=== PATIENT | female | born 1940 | race Caucasian/White ===

== ENCOUNTER 2023-07-05 12:31 | Inpatient (IN) | payer OTHER, MEDICAID ==
[~2023-07-05] VITALS: Ht 162.6 cm; Wt 81.2 kg
[2023-07-05 12:56] VITALS: O2SAT 95
[2023-07-05] MEDS: SODIUM CHLORIDE 0.9% 1,000 ML IV ONE (13:23)
[2023-07-05 13:52] LABS: Basophils # (auto) 0.1 10 ^3/uL (0-0.2); Basophils % (auto) 0.3 % (0.0-2.0); Eosinophils # (auto) 0.6 10 ^3/uL (0-0.8); Eosinophils % (auto) 3.5 % (0.0-7.0); Hematocrit 47.8 % (36.0-46.0); Hemoglobin 15.1 g/dL (12.2-16.2); Lymphocytes # (auto) 2.1 10 ^3/uL (0.4-5.4); Lymphocytes % (auto) 12.6 % (10.0-50.0); Mean Corpuscular Hemoglobin 29.6 pg (28.0-32.0); Mean Corpuscular Hgb Conc. 31.7 g/dL (32.0-36.0); Mean Corpuscular Volume 93.6 fL (80.0-100.0); Monocytes # (auto) 0.9 10 ^3/uL (0-1.3); Monocytes % (auto) 5.1 % (0.0-12.0); Neutrophils # (auto) 13.3 10 ^3/uL (1.6-8.6); Neutrophils % (auto) 78.5 % (37.0-80.0); Red Blood Cells 5.11 10^6/uL (4.0-5.20); White Blood Cell 16.9 10^3/uL (4.4-10.8)
[2023-07-05 13:57] LABS: Chloride 107 mmol/L (98-107); Sodium 137 mmol/L (136-145)
[2023-07-05 13:58] LABS: Anion Gap 3 (5-15); Carbon Dioxide 27 mmol/L (20-30)
[2023-07-05 13:59] LABS: Calcium 9.4 mg/dL (8.5-10.1)
[2023-07-05 14:03] LABS: Blood Urea Nitrogen 15 mg/dL (9-23); Glucose 124 mg/dL (74-106)
[2023-07-05 18:18] LABS: Urine Bacteria None Seen /hpf (None Seen)
[2023-07-05] MEDS ORDERED: BISO5TAB44 PO (18:23)
[2023-07-05] MEDS ORDERED: HYDR1TAB97 PO (18:23)
[2023-07-05] MEDS ORDERED: ACET300T57 PO (18:23)
[2023-07-05] MEDS ORDERED: SERT25TA28 PO (18:23)
[2023-07-05] MEDS ORDERED: CLOP75TA70 PO (18:23)
[2023-07-05] MEDS ORDERED: VALS1TAB57 PO (18:23)
[2023-07-05] MEDS ORDERED: GAB100C PO (18:23)
[2023-07-05] MEDS ORDERED: ATOR-47 PO (18:23)
[2023-07-05] MEDS ORDERED: ONDANSETRON HCL 4 MG/2 ML VIAL IV PRN (18:30)
[2023-07-05] MEDS ORDERED: HYDROcodone-ACET 5/325MG TAB PO PRN (18:30)
[2023-07-05] MEDS ORDERED: ACETAMINOPHEN 325 MG TAB PO PRN (18:30)
[2023-07-05 18:54] LABS: Urine Blood Negative /uL (Negative); Urine Clarity Clear (Clear); Urine Color Light-Yellow (Yellow); Urine Mucus FEW (None Seen); Urine Protein, UAD Negative (Negative); Urine Specific Gravity 1.016 (1.001-1.035); Urine Urobilinogen Normal (Negative); Urine WBC 4 /hpf (0 - 5)
[2023-07-05] MEDS: SODIUM CHLORIDE 0.9% 1,000 ML IV SCH (18:58)
[2023-07-05] MEDS: cefTRIAXone 1GM/50ML D5W 50 ML IV ONE (18:59)
[2023-07-05] MEDS: PANTOPRAZOLE 40 MG/10 ML VIAL INJ IV ONE (18:59)
[2023-07-05 19:30] VITALS: PULSE 85; RESP 32; O2SAT 97
[2023-07-05] MEDS: metroNIDAZOLE 500MG/100ML 100 ML IV ONE (19:52)
[2023-07-05] MEDS: HYDROcodone-ACET 5/325MG TAB PO PRN (20:58)
[2023-07-05 22:08] VITALS: BP 133/30; PULSE 67; RESP 20; TEMP 98; O2SAT 95
[2023-07-05] MEDS: GABAPENTIN 100 MG CAP PO SCH (22:11)
[2023-07-05] MEDS ORDERED: SERT-206 PO (22:15)
[2023-07-05 22:18] VITALS: BP 133/30; PULSE 67; RESP 20; TEMP 98; O2SAT 95
[2023-07-06 01:00] VITALS: BP 127/38; PULSE 62; RESP 18; TEMP 98; O2SAT 94
[2023-07-06] MEDS: metroNIDAZOLE 500MG/100ML 100 ML IV SCH (04:11)
[2023-07-06 05:00] VITALS: BP 129/34; PULSE 59; RESP 20; TEMP 98; O2SAT 95
[2023-07-06 06:32] LABS: Basophils # (auto) 0.1 10 ^3/uL (0-0.2); Basophils % (auto) 0.4 % (0.0-2.0); Eosinophils # (auto) 0.7 10 ^3/uL (0-0.8); Eosinophils % (auto) 4.4 % (0.0-7.0); Hematocrit 43.4 % (36.0-46.0); Hemoglobin 13.9 g/dL (12.2-16.2); Lymphocytes # (auto) 1.8 10 ^3/uL (0.4-5.4); Lymphocytes % (auto) 12.3 % (10.0-50.0); Mean Corpuscular Hemoglobin 29.9 pg (28.0-32.0); Mean Corpuscular Hgb Conc. 32.1 g/dL (32.0-36.0); Monocytes # (auto) 0.9 10 ^3/uL (0-1.3); Monocytes % (auto) 6.1 % (0.0-12.0); Neutrophils # (auto) 11.4 10 ^3/uL (1.6-8.6); Neutrophils % (auto) 76.8 % (37.0-80.0); Nucleated Red Blood Cells % 0.1 %; Red Blood Cells 4.66 10^6/uL (4.0-5.20); Red Cell Distribution Width 14.7 % (11.8-14.3); White Blood Cell 14.8 10^3/uL (4.4-10.8)
[2023-07-06 06:54] LABS: Alanine Aminotransferase 13 U/L (7-40); Albumin 3.5 g/dL (3.2-4.8); Alkaline Phosphatase 53 U/L (46-116); Anion Gap 5 (5-15); Aspartate Aminotransferase 12 U/L (13-40); BUN/Creatinine Ratio 14.7 (10.0-20.0); Blood Urea Nitrogen 11 mg/dL (9-23); Calcium 8.8 mg/dL (8.5-10.1); Carbon Dioxide 23 mmol/L (20-30); Chloride 110 mmol/L (98-107); Glucose 107 mg/dL (74-106); Potassium 4.3 mmol/L (3.5-5.1); Sodium 138 mmol/L (136-145)
[2023-07-06 06:55] LABS: Bilirubin, Total 0.6 mg/dL (0.2-1.0); Total Protein 5.9 g/dL (5.7-8.2)
[2023-07-06 08:34] VITALS: BP 113/52; PULSE 65; RESP 18; TEMP 98.2; O2SAT 94
[2023-07-06] MEDS: PANTOPRAZOLE 40 MG/10 ML VIAL INJ IV SCH (09:21)
[2023-07-06] MEDS: cefTRIAXone 1GM/50ML D5W 50 ML IV SCH (09:21)
[2023-07-06] MEDS: ENOXAPARIN SOD 40 MG/0.4 ML SYRINGE SC SCH (09:22)
[2023-07-06] MEDS: ATORVASTATIN 20 MG TAB PO SCH (09:25)
[2023-07-06] MEDS: SERTRALINE HCL 50 MG TAB PO SCH (09:25)
[2023-07-06] MEDS: CLOPIDOGREL BISULFATE 75 MG TAB PO SCH (09:25)
[2023-07-06] MEDS: ATENOLOL 25 MG TAB PO SCH (09:28)
[2023-07-06] MEDS: VALSARTAN 80 MG TAB PO SCH (09:31)
[2023-07-06] MEDS: CYANOCOBALAMIN (B-12) 1000 MCG/1 ML VIAL SUBCUT ONE (11:48)
[2023-07-06 13:00] VITALS: BP 137/62; PULSE 66; RESP 18; TEMP 98.4; O2SAT 96
[2023-07-06] MEDS: metroNIDAZOLE 500 MG TAB PO SCH (13:15)
[2023-07-06 17:00] VITALS: BP 118/54; PULSE 58; RESP 18; TEMP 98.2; O2SAT 96
[2023-07-06] MEDS ORDERED: LOPERAMIDE HCL 2 MG CAP/TAB PO PRN (18:45)
[2023-07-06 21:00] VITALS: BP 104/41; PULSE 64; RESP 16; TEMP 98.4; O2SAT 96
[2023-07-07] VITALS (7 sets, daily range): BP systolic 103–140; BP diastolic 42–60; PULSE 53–68; RESP 16–20; TEMP 98.2–99.1; O2SAT 20–96
[2023-07-07] MEDS: LOPERAMIDE HCL 2 MG CAP/TAB PO ONE (00:22)
[2023-07-07 07:50] LABS: Chloride 106 mmol/L (98-107); Potassium 4.4 mmol/L (3.5-5.1); Sodium 134 mmol/L (136-145)
[2023-07-07 07:51] LABS: Anion Gap 3 (5-15); Calcium 9.2 mg/dL (8.5-10.1); Carbon Dioxide 25 mmol/L (20-30)
[2023-07-07 07:54] LABS: Basophils # (auto) 0.1 10 ^3/uL (0-0.2); Basophils % (auto) 0.6 % (0.0-2.0); Eosinophils # (auto) 0.4 10 ^3/uL (0-0.8); Eosinophils % (auto) 4.1 % (0.0-7.0); Hematocrit 42.3 % (36.0-46.0); Hemoglobin 13.8 g/dL (12.2-16.2); Lymphocytes # (auto) 1.8 10 ^3/uL (0.4-5.4); Lymphocytes % (auto) 16.9 % (10.0-50.0); Mean Corpuscular Hemoglobin 29.8 pg (28.0-32.0); Mean Corpuscular Hgb Conc. 32.7 g/dL (32.0-36.0); Mean Corpuscular Volume 91.2 fL (80.0-100.0); Monocytes # (auto) 0.6 10 ^3/uL (0-1.3); Monocytes % (auto) 5.9 % (0.0-12.0); Neutrophils # (auto) 7.7 10 ^3/uL (1.6-8.6); Neutrophils % (auto) 72.5 % (37.0-80.0); Red Blood Cells 4.64 10^6/uL (4.0-5.20); Red Cell Distribution Width 14.3 % (11.8-14.3); White Blood Cell 10.6 10^3/uL (4.4-10.8)
[2023-07-07 07:56] LABS: BUN/Creatinine Ratio 10.8 (10.0-20.0); Blood Urea Nitrogen 10 mg/dL (9-23); Glucose 123 mg/dL (74-106)
[2023-07-07] MEDS: CYANOCOBALAMIN (B-12) 1000 MCG/1 ML VIAL SUBCUT SCH (09:56)
[2023-07-07] MEDS: ATENOLOL 25 MG TAB PO SCH (10:00)
[2023-07-07] MEDS: FLORASTOR (S. BOULARDII) 250 MG CAP PO SCH (10:01)
[2023-07-07] MEDS: ACETAMINOPHEN/CODEINE#3 (300/30mg) TAB PO PRN (22:34)
[2023-07-08 01:00] VITALS: BP 127/57; PULSE 64; RESP 20; TEMP 98.6; O2SAT 98
[2023-07-08 05:00] VITALS: BP 117/56; PULSE 64; RESP 16; TEMP 98.5; O2SAT 94
[2023-07-08] MEDS: PANTOPRAZOLE 40 MG TAB PO SCH (05:56)
[2023-07-08 09:34] VITALS: BP 156/64; PULSE 69; RESP 18; TEMP 98.5; O2SAT 95
[2023-07-08] MEDS ORDERED: LEVO500T91 PO (10:28)
[2023-07-08] MEDS ORDERED: MET500T PO (10:28)
[2023-07-08] MEDS ORDERED: PANT40TA2 PO (10:29)
[2023-07-08] MEDS ORDERED: CYAN500T25 PO (10:29)
[2023-07-08 12:55] VITALS: BP 126/59; PULSE 62; RESP 18; TEMP 98.3; O2SAT 92
[2023-07-08 15:43] VITALS: BP 126/59; PULSE 62; RESP 18; TEMP 98.3; O2SAT 92
[2023-07-08 17:00] VITALS: BP 126/51; PULSE 60; RESP 18; TEMP 97.8; O2SAT 95
== END 2023-07-08 17:31 | disposition home or self-care (01) | DRG 872 ==
LOC: EDBD 12:31 → ER 12:31 → OVERFLOW 18:22 → WEST WING 21:58
PROVIDERS: ADMIT Nurse Practitioner Family; ATTEND Internal Medicine
DX: A41.9 Sepsis, unspecified organism (principal); N39.0 Urinary tract infection, site not specified; J96.10 Chronic respiratory failure, unspecified whether with hypoxia or hypercapnia; A04.9 Bacterial intestinal infection, unspecified; E78.5 Hyperlipidemia, unspecified; E03.9 Hypothyroidism, unspecified; I10 Essential (primary) hypertension; J44.9 Chronic obstructive pulmonary disease, unspecified; E66.9 Obesity, unspecified; E86.0 Dehydration; Z66 Do not resuscitate; Z85.118 Personal history of other malignant neoplasm of bronchus and lung; Z85.038 Personal history of other malignant neoplasm of large intestine; I95.9 Hypotension, unspecified; Z68.30 Body mass index [BMI] 30.0-30.9, adult; Z88.0 Allergy status to penicillin; Z88.6 Allergy status to analgesic agent; Z90.710 Acquired absence of both cervix and uterus; Z90.49 Acquired absence of other specified parts of digestive tract
CPT/HCPCS: 36415; 71045; 74176; 80048; 80053; 81001; 82378; 82607; 83605; 83690; 84443; 85025; 87040; 87045; 87077; 87186; 87493; 93005; 97162; 99291; C9113; G0378; J3490

== ENCOUNTER 2024-01-18 22:25 | Emergency (ER) | payer OTHER, MEDICAID ==
[~2024-01-18] VITALS: Ht 162.6 cm; Wt 59.0 kg
[~2024-01-18 22:25] MED LIST: ATOR-47 PO; BISO5TAB44 PO; CLOP75TA70 PO; CYAN500T25 PO; HYDR1TAB97 PO; LEVO500T91 PO; MET500T PO; PANT40TA2 PO; SERT-206 PO; SERT25TA28 PO
--- NOTE | 2024-01-18 22:43 | ED.PDOC ---
SOB-HPI HPI Comments 83-year-old female presents with a chief complaint of SOB x 12 hours with associated chest pain and cough. Patient states that her chest pain is localized to her left chest wall, describes as pressure, and is non-radiating. Patient mentions that she has been feeling increasingly SOB over the past x 12 hours. Patient relays that she has a persistent cough that is productive with green phlegm. Patient was given a breathing treatment by EMS and placed on 2L of Oxygen. No other symptoms or modifying factors present at this time. Chief Complaint: Chest Pain Time Seen by MD: 22:35 Reviewed notes: Medications, Allergies Information Source: Patient, Emergency Med Personnel Mode of Arrival: EMS Severity: Moderate Timing: Hours Duration: Since onset Context: At Rest PE Risk Factors: None Prehospital treatment: Breathing Tx, Oxygen Associated Signs and Symptoms: Cough Quality: Pressure Radiation: No Radiation Location: Chest (L) If cough with SOB: Productive Vital Signs Vital Signs Date Time Temp Pulse Resp B/P (MAP) Pulse Ox O2 Delivery O2 Flow Rate FiO2 01/19/24 15:19 98.3 66 16 127/48 (74) 95 98.3 01/19/24 07:50 Nasal Cannula* 2 28 Physical Exam General: Awake, alert and oriented. No acute distress. Skin: Skin in warm, dry and intact. Appropriate color for ethnicity. Nailbeds pi nk with no cyanosis. HEENT: The head is normocephalic and atraumatic. Conjunctivae are clear without exudates or hemorrhage. Sclera is non-icteric. EOM are intact. No signs of nystagmus. Eyelids are normal in appearance without swelling or lesions. Oral m [place] is pink and moist Neck: The neck is supple with normal range of motion. No JVD. Cardiac: Heart rate and rhythm are normal. No murmurs, gallops, or rubs are auscultated. Respiratory: Breath sounds diminished bilaterally Abdominal: Abdomen is soft, non-tender without distention. Bowel sounds are present and normoactive in all four quadrants. Extremities: Upper and lower extremities are atraumatic in appearance without deformity or edema. Neurological: The patient is awake, alert and oriented to person, place, and time with normal speech. Speech is clear. There is no facial asymmetry. Psychiatric: Appropriate mood and affect. Good judgement and insight. No visual or auditory hallucinations. Review of Systems: As stated in HPI Past Medical History PAST MEDICAL HISTORY: Cancer, High Lipids, VA, Thyroid Surgical History: Appendectomy, Cholecystectomy, Hysterectomy PROGRAM MANAGER History: No Pertinent PROGRAM MANAGER History Family History Family History: No family hx of Cancer, No family hx of DM, No family hx of H e[place] Social History Smoker: Non-Smoker Alcohol: Denies ETOH Use Drugs: Denies Drug Use Lives In: Home EKG EKG : Pulse Rate (adult): 65 [place]: Normal Cardiac Rhythm: NSR Block: None Hypertrophy: None ST: Normal Was a procedure done? Was a procedure done?: No Differential Dx Differential Diagnosis: Other Comments Differential diagnoses considered include acute ischemic coronary syndrome, aortic dissection, cardiac tamponade, mediastinitis, pulmonary embolus, pneumothorax, tension pneumothorax, esophageal rupture, coronary artery vasos pasm, myocarditis, pericarditis, pneumonia, pulmonary edema, esophageal tear, pancreatitis, aortic stenosis, dilated cardiomyopathy, hypertrophic cardiomyopathy, mitral valve prolapse, malignancy, pleuritis, pneumomediastinum, primary pulmonary hypertension, cholecystitis, esophageal spasm, esophagus, gastritis, GERD, peptic ulcer disease, costochondritis, fibromyalgia, rib fracture, herpes zoster, radicular syndromes, thoracic outlet syndrome, somatization. X-Ray, Labs, Meds, VS Vital Signs Date Time Temp Pulse Resp B/P (MAP) Pulse Ox O2 Delivery O2 Flow Rate FiO2 01/19/24 15:19 98.3 66 16 127/48 (74) 95 98.3 01/19/24 14:36 98.3 67 18 146/58 (87) 95 98.3 01/19/24 12:00 68 01/19/24 11:21 98.3 63 17 141/42 (75) 96 98.3 01/19/24 08:00 63 01/19/24 07:50 98.8 64 17 139/69 (92) 98 98.8 01/19/24 07:50 64 17 98 Nasal Cannula* 2 28 01/19/24 07:00 69 13 155/52 (86) 97 01/19/24 06:25 171/60 01/19/24 06:00 73 24 171/60 (97) 97 01/19/24 05:24 98.4 72 16 166/62 (96) 96 98.4 01/19/24 05:15 72 16 96 Nasal Cannula* 2 28 01/19/24 01:25 94 Nasal Cannula* 2 28 01/19/24 01:25 18 94 Nasal Cannula* 2 28 01/19/24 01:15 65 17 150/55 01/19/24 00:39 66 12 153/66 01/19/24 00:17 98.7 66 17 153/66 (95) 96 98.7 01/19/24 00:17 66 01/18/24 23:30 62 01/18/24 22:43 65 01/18/24 22:32 99.1 87 20 155/98 (117) 93 01/18/24 22:32 65 Lab Test 01/19/24 05:15 01/19/24 01:55 01/19/24 01:00 01/19/24 00:14 Range/Units Influenza Type A Antigen Negative Negative Influenza Type B Antigen Negative Negative Respiratory Syncytial Virus Antigen Negative Negative SARS-CoV-2 Antigen (Rapid) Negative NEGATIVE Troponin I High Sensitivity 11 </=34 ng/L Urine Color Colorless Yellow Urine Clarity Turbid H Clear Urine pH 5.5 5.0-9.0 Urine Specific [place] 1.012 1.001-1.035 Urine Protein Negative Negative Urine Ketones Negative Negative Urine Blood Trace H Negative /uL Urine Nitrite 2+ H Negative Urine Bilirubin Negative Negative Urine Urobilinogen Normal Negative mg/dL Urine Leukocyte Esterase 2+ Negative /uL Urine RBC 4 0 - 4 /hpf Urine WBC 27 0 - 5 /hpf Urine Squamous Epithelial Cells Few <5 /hpf Urine Bacteria Few H None Seen /hpf Urine Mucus Few None Seen Urine Glucose Normal Normal mg/dL Blood Gas Specimen Type Arterial Blood Gas Sample Site Right radial Blood Gas Patient Temperature 37.0 Arterial Blood Date Drawn [id number] Arterial Blood pH 7.405 7.350-7.450 Arterial Blood Partial Pressure CO2 52.9 H 32.0-45.0 mmHg Arterial Blood Partial Pressure O2 72.8 L 83.0-108.0 mmHg Arterial Blood HCO3 32.4 H 21.0-28.0 mmol/L Arterial Blood Oxygen Saturation 95.3 94.0-98.0 % Arterial Blood Base Excess 6.2 H -2.0-3.0 mmol/L Arterial Blood Oxyhemoglobin 94.0 94.0-98.0 % Arterial Blood Carboxyhemoglobin 1.0 0.5-1.5 % Arterial Blood Methemoglobin 0.4 0.0-1.5 % Igor Test Modified Blood Gas Total Hemoglobin 14.50 12.0-16.0 g/dL Blood Gas Liter Flow 2.00 Blood Gas Modality Nasal cannula FiO2 % 28.0 Test 01/18/24 23:50 01/18/24 22:57 Range/Units Troponin I High Sensitivity 9 10 </=34 ng/L White Blood Count 9.7 4.4-10.8 10^3/uL Red Blood Count 4.66 4.0-5.20 10^6/uL Hemoglobin 13.7 12.2-16.2 g/dL Hematocrit 42.1 36.0-46.0 % Mean Corpuscular Volume 90.5 80.0-100.0 fL Mean Corpuscular Hemoglobin 29.3 28.0-32.0 pg Mean Corpuscular Hemoglobin Concent 32.4 32.0-36.0 g/dL Red Cell Distribution Width 14.1 11.8-14.3 % Platelet Count 207 140-450 10^3/uL Mean Platelet Volume 8.7 6.9-10.8 fL Neutrophils (%) (Auto) 80.1 H 37.0-80.0 % Lymphocytes (%) (Auto) 11.7 10.0-50.0 % Monocytes (%) (Auto) 4.4 0.0-12.0 % Eosinophils (%) (Auto) 3.5 0.0-7.0 % Basophils (%) (Auto) 0.3 0.0-2.0 % Neutrophils # (Auto) 7.8 1.6-8.6 10 ^3/uL Lymphocytes # (Auto) 1.1 0.4-5.4 10 ^3/uL Monocytes # (Auto) 0.4 0-1.3 10 ^3/uL Eosinophils # (Auto) 0.3 0-0.8 10 ^3/uL Basophils # (Auto) 0 0-0.2 10 ^3/uL Nucleated Red Blood Cells 0.0 % Prothrombin Time 12.1 H 9.3-11.8 sec Prothrombin Time INR 1.15 0.9-1.15 Activated Partial Thromboplast Time 27.5 24.5-34.5 SEC D-Dimer, Quantitative 0.37 0.0-0.49 mg/L FEU Sodium Level 143 136-145 mmol/L Potassium Level 3.6 3.5-5.1 mmol/L Chloride Level 103 98-107 mmol/L Carbon Dioxide Level 34 H 20-31 mmol/L Anion Gap 6 5-15 Blood Urea Nitrogen 10 9-23 mg/dL Creatinine 0.79 0.550-1.02 mg/dL Glomerular Filtration Rate Calc 75 >90 mL/min BUN/Creatinine Ratio 12.7 10.0-20.0 Serum Glucose 174 H 74-106 mg/dL Calcium Level 9.6 8.7-10.4 mg/dL Magnesium Level 1.5 L 1.6-2.6 mg/dL Total Bilirubin 0.8 0.2-1.0 mg/dL Aspartate Amino Transferase (AST) 33 13-40 U/L Alanine Aminotransferase (ALT) 47 H 7-40 U/L Alkaline Phosphatase 66 46-116 U/L B-Type Natriuretic Peptide 386.23 0-100 pg/mL Total Protein 6.5 5.7-8.2 g/dL Albumin 3.8 3.2-4.8 g/dL Microbiology Date/Time Source Procedure Growth Status 01/19/24 01:00 Voided Urine Urine Culture - Final Complete Time of 1ST Reevaluation: 23:05 Reevaluation 1ST: Unchanged Patient Education/Counseling: Diagnosis, Treatment, Prognosis Family Education/Counseling: No Family Present Departure 1 Departure Time of Disposition: 06:11 Impression: Primary Impression: Shortness of breath Disposition: ADMITTED INPATIENT Condition: Stable Comments 83-year-old female with allergy to penicillin, 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 She presented to the emergency department with shortness of breath. Troponins negative. No ST elevation on EKG. D-dimer was also negative. She continues to report dyspnea above her baseline especially worse with ambulation. Plan to admit/transfer patient for suspected CHF exacerbation versus pneumonia. Labs in the emergency department. Patient is stable. Her chest x-ray showed new findings compared to previous chest x-ray June/2023. 1. Mild cardiomegaly with central pulmonary venous congestion in both lungs. 2. Patchy consolidations in both lower lungs with bilateral pleural effusions. [place] authorization code [id number] Critical Care Note Critical Care Time?: No Stability Stability form required: No Heart Score Heart Score: Heart Score Response (Comments) Value History N/A 0 EKG N/A 0 Age N/A 0 Risk Factors N/A 0 Troponin N/A 0 Total 0 I personally scribed for ALISTAIR SALEH MD ([email or web address]) on 01/18/24 at 22:43. Electronically submitted by Adis Nelson ([email or web address]). ALISTAIR SALEH MD Jan 18, 2024 22:43
[2024-01-18] MEDS: ASPirin 81 mg TAB PO ONE (23:00)
--- NOTE | 2024-01-18 23:11 | ECG ---
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
[2024-01-18 23:19] LABS: Basophils # (auto) 0 10 ^3/uL (0-0.2); Basophils % (auto) 0.3 % (0.0-2.0); Eosinophils # (auto) 0.3 10 ^3/uL (0-0.8); Eosinophils % (auto) 3.5 % (0.0-7.0); Hematocrit 42.1 % (36.0-46.0); Hemoglobin 13.7 g/dL (12.2-16.2); Lymphocytes # (auto) 1.1 10 ^3/uL (0.4-5.4); Lymphocytes % (auto) 11.7 % (10.0-50.0); Mean Corpuscular Hemoglobin 29.3 pg (28.0-32.0); Mean Corpuscular Hgb Conc. 32.4 g/dL (32.0-36.0); Mean Corpuscular Volume 90.5 fL (80.0-100.0); Monocytes # (auto) 0.4 10 ^3/uL (0-1.3); Monocytes % (auto) 4.4 % (0.0-12.0); Neutrophils # (auto) 7.8 10 ^3/uL (1.6-8.6); Neutrophils % (auto) 80.1 % (37.0-80.0); Platelet Count (auto) 207 10^3/uL (140-450); Red Blood Cells 4.66 10^6/uL (4.0-5.20); Red Cell Distribution Width 14.1 % (11.8-14.3); White Blood Cell 9.7 10^3/uL (4.4-10.8)
[2024-01-18 23:32] LABS: INR 1.15 (0.9-1.15); Partial Thromboplastin Time 27.5 SEC (24.5-34.5); Prothrombin Time 12.1 sec (9.3-11.8)
[2024-01-18 23:36] LABS: Albumin 3.8 g/dL (3.2-4.8); Alkaline Phosphatase 66 U/L (46-116); Anion Gap 6 (5-15); Aspartate Aminotransferase 33 U/L (13-40); BUN/Creatinine Ratio 12.7 (10.0-20.0); Bilirubin, Total 0.8 mg/dL (0.2-1.0); Blood Urea Nitrogen 10 mg/dL (9-23); Calcium 9.6 mg/dL (8.7-10.4); Chloride 103 mmol/L (98-107); Potassium 3.6 mmol/L (3.5-5.1); Sodium 143 mmol/L (136-145); Total Protein 6.5 g/dL (5.7-8.2)
[2024-01-18 23:38] LABS: Alanine Aminotransferase 47 U/L (7-40); Carbon Dioxide 34 mmol/L (20-31); Glucose 174 mg/dL (74-106); Magnesium 1.5 mg/dL (1.6-2.6)
[2024-01-19 00:17] VITALS: PULSE 66
[2024-01-19 00:20] LABS: Base Excess 6.2 mmol/L (-2.0-3.0)
[2024-01-19] MEDS: MORPHINE SULFATE INJ 2 MG/ml SYRG IV ONE (00:39)
[2024-01-19] MEDS: ALBUTEROL SULF 2.5 MG/0.5ML(0.5%) NEB SOLN NEB ONE (01:25)
[2024-01-19 01:51] LABS: Urine Bacteria FEW /hpf (None Seen); Urine Blood TRACE /uL (Negative); Urine Clarity Turbid (Clear); Urine Color Colorless (Yellow); Urine Mucus FEW (None Seen); Urine Protein, UAD Negative (Negative); Urine Specific Gravity 1.012 (1.001-1.035); Urine Urobilinogen Normal (Negative); Urine WBC 27 /hpf (0 - 5); Urine pH 5.5 (5.0-9.0)
--- NOTE | 2024-01-19 03:42 | DVH ---
Examination: CXRP Clinical Indication: Chest pain. Comparison: None. Technique: Frontal radiograph of the chest was obtained. Findings: Mild cardiomegaly with central pulmonary venous congestion in both lungs. Inhomogeneous radiopacities in both lower lungs, suggestive of patchy consolidations. Blunting of the bilateral costophrenic angles, suggestive of bilateral pleural effusions. There is no pneumothorax. Aortic knob calcification noted. No acute osseous abnormality is seen. Impression: 1. Mild cardiomegaly with central pulmonary venous congestion in both lungs. 2. Patchy consolidations in both lower lungs with bilateral pleural effusions. Advised further evaluation with CT chest without contrast. Electronically Signed 01/19/2024 03:42 Jaelyn Haley
[2024-01-19] MEDS: NITROFURANTOIN 100 mg CAP PO ONE (03:51)
[2024-01-19] MEDS ORDERED: AZITHROMYCIN 500MG/ 250ML 250 ML IV ONE (04:00)
[2024-01-19 05:15] VITALS: PULSE 72; RESP 16; O2SAT 96
--- NOTE | 2024-01-19 05:21 | DVH ---
Procedure: CT CHEST WITHOUT CONTRAST Reason for study/Clinical History: Abnormal Chest Xray Comparison Study: Chest radiograph performed on earlier same date Exam Date: 01/19/2024 04:26 AM TECHNIQUE: Multidetector CT of the chest was performed from the lung apices to the upper abdomen with out the use of intravenous contract. Axial, coronal and sagittal multiplanar reformats were performed . Radiation Dose Information: CT Dose: CTDI volume is 16.82 mGy. Dose-length product is 601.2 mGy*cm The dose indicators for CT are the volume Computed Tomography (CT) Dose Index (CTDIvol) and the Dose Length Product (DLP), and are measured in units of mGy and mGy-cm, respectively. These indicators are not patient dose, but values generated from the CT scanner acquisition factors. The report includes radiation exposure data for exposures received during this examination. FINDINGS: Lower neck: Bilateral low attenuating lesions the larger in the left thyroid lobe measuring 2.6 cm. Lungs: Bilateral lower lobe atelectasis. Pleura: Small bilateral pleural effusions. No pneumothorax. Central airways: Patent. Esophagus: Unremarkable. Heart/Vascular Structures: Normal heart size. No pericardial effusion. Coronary artery calcifications . Lymph Nodes: No adenopathy Musculoskeletal: No acute osseous abnormality. Soft tissues: Normal. Upper abdomen: Limited portions of the upper abdomen are unremarkable. IMPRESSION: 1. Small bilateral pleural effusions. Bilateral lower lobe atelectasis. 2. Cardiomegaly. Coronary artery calcifications. 3. Bilateral thyroid nodules. Radiation optimization: All CT scans at this facility use at least one of these dose optimization shey hniques: automated exposure control mA and/or kV adjustment per patient size (includes targeted exam s where dose is matched to clinical indication) or iterative reconstruction.
[2024-01-19] MEDS: HYDROcodone-ACET 5/325MG TAB PO ONE ×2 (06:25→11:36)
[2024-01-19] MEDS: FUROSEMIDE 40 MG/4 ML VIAL IV ONE (06:25)
[2024-01-19] MEDS: levoFLOXacin 750MG 150 ML IV ONE (06:25)
[2024-01-19 06:37] LABS: Respiratory Syncytial Virus Ag Negative (Negative)
--- NOTE | 2024-01-19 06:37 | ECG ---
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
[2024-01-19 06:38] LABS: Rapid Influenza A Negative (Negative); Rapid Influenza B Negative (Negative)
[2024-01-19 06:39] LABS: COVID19 ANTIGEN SOFIA FIA NEGATIVE (NEGATIVE)
[2024-01-19 07:50] VITALS: PULSE 64; RESP 17; O2SAT 98
[2024-01-19 15:19] VITALS: BP 127/48; PULSE 66; RESP 16; TEMP 98.3; O2SAT 95
== END 2024-01-19 15:29 | disposition short-term general hospital (02) ==
LOC: EDBD 22:25 → ER 22:25
DX: R06.02 Shortness of breath (principal); E78.5 Hyperlipidemia, unspecified; I25.2 Old myocardial infarction; Z85.9 Personal history of malignant neoplasm, unspecified; Z90.49 Acquired absence of other specified parts of digestive tract; Z90.710 Acquired absence of both cervix and uterus; Z20.822 Contact with and (suspected) exposure to COVID-19; Z79.899 Other long term (current) drug therapy
CPT/HCPCS: 36415; 36600; 71045; 71250; 80053; 81001; 82805; 83735; 83880; 84484; 85025; 85379; 85610; 85730; 87086; 87426; 87804; 87807; 93005; 94640; 96365; 96366; 96375; 99285; J1940; J1956; J2270